=== PATIENT | female | born 1970 | race Caucasian/White ===

== ENCOUNTER 2023-09-26 09:56 | Outpatient (OUT) | payer MEDICARE, MEDICAID, SELFPAY ==
--- NOTE | 2023-09-26 11:02 | CA_ITS ---
Patient Name: EDWIGE NAVAS MR#: [id number] : 1970 Exam Date: 09/26/2023 Ordering Doctor: DR BHARGAV RAMOS M.D. ECHOCARDIOGRAM REPORT PROCEDURE: CA ECHO DOPPLER COMPLETE INDICATIONS: Reza-Danlos syndrome, Palpitations COMPARISON: None. DESCRIPTION: COMPLETE ECHOCARDIOGRAM Real-time transthoracic echocardiography with 2D, M-mode, spectral and color flow Doppler performed. QUALITY: Technical quality was good. LEFT VENTRICLE: Normal chamber size. Normal left ventricular wall thickness. Normal systolic function. LV EF: Calculated left ventricular ejection fraction is normal (55%). DIASTOLIC: Normal diastolic function. ATRIAL SEPTUM: LEFT ATRIUM: Normal chamber size. RIGHT ATRIUM: Normal chamber size. RIGHT VENTRICLE: Normal chamber size. Normal right ventricular systolic function. TRICUSPID VALVE: Normal mobility and thickness. No stenosis with trivial regurgitation. No evidence of pulmonary hypertension. RVSP 22 mmHg MITRAL VALVE: Normal mobility and thickness. No evidence of mitral valve stenosis. There is no mitral annular calcification. Trivial mitral regurgitation. AORTIC VALVE: Normal trileaflet appearance. No visible sclerosis. Normal leaflet mobility. No evidence of aortic valve stenosis. No aortic regurgitation. AORTIC ROOT: Normal diameter and appearance, measuring 3.0 cm. Normal diameter ascending aorta measuring 2.6 cm. The aortic arch measures 2.0 cm. PULMONIC VALVE: Normal thickness and mobility. No stenosis. Trivial regurgitation. PERICARDIUM: No evidence of pericardial effusion. IVC: Collapses with inspirations. Normal size. PLEURA: CONCLUSION: 1. Left ventricle is normal in size with normal systolic function. LVEF is estimated at 55%. 2. Normal right ventricular size and systolic function. 3. Normal diastolic function. 4. No significant valvular dysfunction. 5. Normal size aortic root, ascending aorta and aortic arch. 6. Normal right-sided pressures. Adult Echocardiography Procedure Report Left Ventricle LVEDD (3.7 - 5.6 cm): 4.36 cm LVESD (2.2 - 4.0 cm): 3.07 cm LVIVS thickness (0.6 - 1.2 cm): 0.72 cm LVPW thickness (0.5 - 1.0 cm): 0.66 cm e': 0.12 m/s E - e': 5.80 LVOT Max Gradient: 4.40 mm[Hg] LVOT Area (cm2): 1.05 m/s Peak Velocity (LVOT): 1.05 m/s Mean Velocity (LVOT): 0.69 m/s LVOT Diameter 1.88 cm Left Ventricular Ejection Fraction: 55 % Left Atrium LA Volume Index (2D A2C): 26.78 ml/m2 Left Atrium Systolic Dimension: 2.81 cm Mitral Valve MV E to A Ratio: 0.94 Mitral Valve A-Wave Peak Velocity: 0.77 m/s Mitral Valve E-Wave Peak Velocity: 0.72 m/s Right Ventricle RV Internal Diastolic Dimension: 3.35 cm Aorta AO Root Diam: 2.97 cm Ascending Ao Diam: 2.62 cm Aortic Valve AoV Area (Peak Kevon): 2.24 cm2, 2.24 cm2 AoV Area (VTI): 2.12 cm2, 2.12 cm2 Peak Velocity(Antegrade Flow): 1.30 m/s Peak Gradient(Antegrade Flow): 6.72 mm[Hg] Mean Velocity(Antegrade Flow): 0.91 m/s Mean Gradient(Antegrade Flow): 3.76 mm[Hg] Velocity Time Integral: 30.95 cm Tricuspid Valve Peak Velocity (Regurgitant Flow): 1.67 m/s, 1.83 m/s, 2.17 m/s Pulmonic Valve Mean Gradient: 2.50 mm[Hg], 2.60 mm[Hg] Mean Velocity: 0.73 m/s, 0.75 m/s Peak Velocity: 1.09 m/s Peak Gradient: 5.01 mm[Hg], 4.51 mm[Hg] Right Atrium Right Atrium Systolic Pressure: 40.16 ml, 40.16 ml Dictated by: Bhargav Ramos M.D. on 09/28/2023 at 15:40 Approved by: Bhargav Ramos M.D. on 09/28/2023 at 15:45
== END 2023-09-26 09:57 | disposition home or self-care (01) ==
PROVIDERS: PCP Nurse Practitioner Primary Care; Visit Provider Internal Medicine Interventional Cardiology
DX: Q79.60 Ehlers-Danlos syndrome, unspecified (principal); M35.7 Hypermobility syndrome; R00.2 Palpitations
CPT/HCPCS: 93306

== ENCOUNTER 2023-10-03 11:16 | Outpatient (OUT) | payer MEDICARE, MEDICAID, SELFPAY ==
--- OUTSIDE RECORDS SUMMARY | 2023-10-03 11:19 | XMS_ITS | CCD ---
Author Name Unknown Address [address] [place] [id number] Organization [facility] Care Team Providers Care Order Entry Specialist Name Role Phone PHYSICIAN, DEFAULT Unavailable Unavailable PHYSICIAN, DEFAULT Unavailable Unavailable SELF, REFERRED Unavailable Unavailable SHAMMO, DMITRY Admitting Unavailable SHAMMO, DMITRY Attending Unavailable [facility] Primary Care Unava ilable DR Pj Guo Consulting Unavailable SHAMMO, DMITRY Consulting Unavailable MOUKABHARGAV VELASCO Attending Unavailable JEFFERY SHAW Attending Unavailable BRENDA BRCIE Referring Unavailable [facility] Primary Care Unava ilable Allergies Allergy Classification Reported Allergen(s) Allergy Type Date of Onset Reaction(s) Facility (1 source) Bee/Wasp/Ant venom; Translations: [Bee/Wasp Stings] Propensity to adverse reactions (disorder) 2 [facility] Repository (1 source) [place]; Translations: [berries] Propensity to adverse reactions (disorder) 2 [facility] Repository (3 sources) Penicillins; Translations: [PENICILLINS] Drug allergy (disorder) 2 [facility] Repository (1 source) choclolate; Translations: [choclolate] Propensity to adverse reactions (disorder) 2 [facility] Repository (1 source) Bee pollen; Translations: [BEE POLLEN] Propensity to adverse reactions to drug (disorder) 4 [facility] Repository Problems Active Problems Problem Classification Problem Date Documented Da te Episodic/Chronic Cardiac dysrhythmias (2 sources) Palpitations; Translations: [Palpitations] Onset: 09-05-2023 Episodic Disorders of lipid metabolism (2 sources) Mixed hyperlipidemia; Translations: [Mixed hyperlipidemia] Onset: 09-05-2023 Chronic Esophageal disorders (2 sources) Gastro-esophageal reflux disease without esophagitis; Translations: [Gastro-esophagea l reflux disease without esophagitis] Onset: 09-17-2022 Chronic Screening and history of mental health and substance abuse codes (4 sources) Personal history of nicotine dependence; Translations: [PERSONAL HISTORY OF NICOTINE DEPEND] Onset: 09-17-2022 Episodic Spondylosis; intervertebral disc disorders; other back problems (1 source) Radiculopathy, cervical region; Translations: [Radiculopathy, cervical region] Onset: 08-16-2023 Episodic Unclassified (2 sources) Reza-Danlos syndrome, unspecified; Translations: [Reza-Danlos syndrome, unspecified] Onset: 09-17-2022 Past or Other Problems Problem Classification Problem Date Documented Date Episodic/Chronic Other connective tissue disease (2 sources) Hypermobility syndrome; Translations: [Hypermobility syndrome] Onset: 09-17-2022 Episodic Results Test Name Value Interpretation Reference Range Facil ity Telemedicineon 09-05-2023 Telemedicine [id number] Edwige Navas 1970 F Date Provider Department Center 09/05/2023 JEFFERY PURVIS [facility] Family History Problem Relation Age of Onset Marfan syndrome Son Family Status - Relation Status Age at Son Alive Level of Service:79012 MI OFFICE/OUTPATIENT ESTABLISHED MOD MDM 30 MIN Normal [facility] CT LUNG CANCER SCREENINGon 0 09-18-2022 CT LUNG CANCER SCREENING EXAMINATION: CT LUNG CANCER SCREENING HISTORY: Screening for malignant neoplasm of respiratory tract COMPARISON: No relevant comparison available. TECHNIQUE: Axial, Coronal, and Sagittal images were created without the administration of IV contrast material. Dose reduction techniques were achieved by using automated exposure control and/or adjustment of mA and/or kV according to patient size and/or use of iterative reconstruction technique. FINDINGS: LUNGS: Mild scarring within lung apices bilaterally. Infiltrates or suspicious nodules. PLEURA: No mass, effusion, or pneumothorax. VASCULATURE: No abnormality. ZO: No mass or pathologic adenopathy. MEDIASTINUM: No mass or pathologic adenopathy. CARDIAC: No enlargement, pericardial thickening, or significant calcification. AORTA: No aneurysm or dissection. CHEST WALL: No mass or axillary adenopathy BONES: No bone lesion or fracture. LIMITED ABDOMEN: No suspicious findings. Limited images of the upper abdomen. OTHER: Negative. IMPRESSION: 1. Lung-RADS 2- Benign Appearance or Behavior. Nodules with a very low likelihood of becoming a clinically active cancer due to size or lack of growth. Follow-up CT Chest in 1 year. Electronically authenticated by: PJ GUO Date: 2022-09-18 07:21 Normal [facility] Office Visiton 09-17-2022 Follow-up visit [id number] Edwige Navas 1970 F Date Provider Department Center 09/17/2022 Jina-BHARGAV DIALLO [facility] Family History Problem Relation Age of Onset Marfan syndrome Son Family Status - Relation Status Age at Son Alive Level of Service:84470 MI OFFICE/OUTPATIENT NEW LOW MDM 30-44 MINUTES Reason for Visit and Comments: left ventricular systolic dysfunction [Other] Normal [facility] Encounters Encounter Date Encounter Type Care Provider Facility Start: 09-05-2023 End: 09-05-2023 ambulatory JEFFERY SHAW [facility] Start: 08-16-2023 End: 09-12-2023 ambulatory [facility]EN[facility] Start: 09-17-2022 End: 09-18-2022 ambulatory DMITRY CALIMO Facility: Start: 01-21-2018 End: 01-22-2018 Ambulatory DEFAULT PHYSICIAN Facility:[facility] Payers Date Payer Category Payer Unknown [id number] 1970 Unknown [id number] 1961 Medicaid [id number] 1961 Unknown [id number] Unknown Progress note 09-05-2023 Note Date & Type Note Facility 09-05-2023 Note Patient being seen v ia telemedicine for palpitations and SOB. She is due next month for annual follow up with echo prior, which hasn't been done yet. She is not taking any medications currently. C/o palpitations w/ exertion and GUY. States she feels like her esophagus is closing up . PCP ordered carotid US yesterday she said. Review of Systems Cardiovascular: Positive for chest pain, dyspnea on exertion and palpitations. Respiratory: Positive for cough. Musculoskeletal: Positive for back pain and neck pain. Neurological: Positive for headaches and light-headedness. All other systems reviewed and are negative. [facility] Progress note 09-05-2023 Note Date & Type Note Facility 09-05-2023 Note Cardiovascular Medic ine [facility] SUBJECTIVE No chief complaint on file. Edwige Navas is a 53 y.o. female is being evaluated today for follow-up. 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 Her sons have Marfan's syndrome (or Marfanoid features). -Prior testing in the past included a cardiac CTA and aortic CTA in 07/2011. She had no significant coronary disease by cath in 2014 and no aortic aneurysm. -Echocardiogram 06/2011 was within normal. -She has history of multiple bone fractures and joint injuries. -Chest pain - was investigated by an echocardiogram and a stress test as well as blood testing which were nonrevealing. She was started on omeprazole and this has helped significantly in eliminating the chest pain. -HLD 09/05/2023 Patient being seen via telemedicine for palpitations and SOB. She is due next month for annual follow up with echo prior, which hasn't been done yet. She is not taking any medications currently. C/o palpitations w/ exertion and GUY. States she feels like her esophagus is closing up . PCP ordered carotid US yesterday she said. -She developed palpations about 1 week ago. She could feel it in the center of her chest and in her throat. She could feel some skipped beats. Accompanied headache, chest achiness. -She has had increased SOB with exertion for the past week as well. PCP ordered advanced cholesterol levels ApoB, fatty liver. Denies orthopnea, leg swelling, syncope. Patient Active Problem List Diagnosis Chest pain Cardiovascular stress test abnormal Depressive disorder Disorder of cardiovascular system Reza-Danlos syndrome Marfan's syndrome Hypermobility syndrome Generalized anxiety disorder Electrocardiogram abnormal Left ventricular systolic dysfunction Lipoma Lipoma of skin and subcutaneous tissue (excluding face) Malaise and fatigue Migraine Multiple joint pain Difficulty walking Pain in joint of right ankle Right ankle instability Traumatic rupture of peroneal tendon, right, sequela Past Medical History: Diagnosis Date EDS (Reza-Danlos syndrome) Family History Problem Relation Name Age of Onset Marfan syndrome Son Social History Tobacco Use Smoking status: Former Types: Cigarettes Quit date: 2021 Years since quittin.0 Smokeless tobacco: Never Allergies Allergen Reactions Bee Pollen Other Penicillins Other and Unknown ROS Cardiovascular: Positive for chest pain, dyspnea on exertion and palpitations. Respiratory: Positive for cough. Musculoskeletal: Positive for back pain and neck pain. Neurological: Positive for headaches and light-headedness. All other systems reviewed and are negative. OBJECTIVE Visit Vitals BP 103/59 (BP Location: Right arm, Patient Position: Sitting) Pulse 75 Ht 1.727 m (5' 8 ) Wt 69.9 kg (154 lb) SpO2 99% BMI 23.42 kg/m??? Smoking Status Former BSA 1.83 m??? Medications: Current Outpatient Medications: omeprazole (PriLOSEC) [address] capsule, Take 20 mg by mouth in the morning., Disp: , Rfl: Physical Exam Constitutional: Appearance: She is normal weight. HENT: Head: Normocephalic and atraumatic. Nose: Nose normal. Eyes: Extraocular Movements: Extraocular movements intact. Conjunctiva/sclera: Conjunctivae normal. Pulmonary: Effort: Pulmonary effort is normal. No respiratory distress. Musculoskeletal: Cervical back: Normal range of motion and neck supple. Neurological: Mental Status: She is alert and oriented to person, place, and time. Psychiatric: Mood and Affect: Mood normal. Behavior: Behavior normal. Thought Content: Thought content normal. Judgment: Judgment normal. Labs: No results found for any previous visit. No results found for: EXTCMP , BMPR1A , CBCDIF , BNP , LASAP , RED Blood testing 08/23/2022: Ref Range & Units 3 wk ago White Blood Cells 4.0 - 11.0 X10E9/L 6.0 RBC count 3.80 - 5.20 X10E12/L 5.08 Hemoglobin 11.7 - 15.5 g/dL 14.8 Hematocrit 35 - 47 % 45.2 MCV 80 - 100 fL 89 MCH 27 - 34 pg 29.0 MCHC 32 - 36 g/dL 32.6 RDW 11.5 - 15.0 % 13.1 Platelets 150 - 450 X10E9/L 241 MPV 7 - 12 fL 8.7 Ref Range & Units 3 wk ago Sodium 134 - 146 mmol/L 139 Potassium, Bld 3.5 - 5.0 mmol/L 4.7 Chloride 98 - 109 mmol/L 103 CO2 22 - 32 mmol/L 30 Anion gap 5 - 15 mmol/L 6 BUN 5 - 23 mg/dL 16 Creatinine 0.40 - 1.00 mg/dL 0.93 Comment: METHOD TRACEABLE TO IDMS STANDARD Glucose 65 - 99 mg/dL 88 Calcium 8.5 - 10.5 mg/dL 10.1 Total Protein 6.0 - 8.0 g/dL 7.7 Albumin 3.2 - 5.3 g/dL 4.8 Alkaline Phosphatase 39 - 130 U/L 86 AST 0 - 41 U/L 18 ALT 0 - 31 U/L 13 Total bilirubin 0.3 - 1.2 mg/dL 0.5 eGFR (CKD-EPI)non-race dependent >59 ml/min/1.73sq.m 73 Ref Range & Units 3 wk ago Troponin I 0.00 - 0.04 ng/mL <0.01 Testing/Procedures: Stress test 09/06/2022: No ischemic EKG changes with Lexiscan infusion. No convincing eviden (more content not included)... [facility] Progress note 09-17-2022 Note Date & Type Note Facility 09-17-2022 Note [place] Cardiology - [facility] Subjective Edwieg Navas is a 52 y.o. year old female patient being seen to re-establish care for LV systolic dysfunction. She was last seen in 2019. She had recent stress test and echo at [facility]. She said tests were ordered for intermittent chest pain, radiating to her left shoulder. Says she was started on omeprazole and has not had the pain since then. She quit smoking in October 2021. She denies SOB and palpitations. Patient Active Problem List Diagnosis Chest pain Cardiovascular stress test abnormal Depressive disorder Disorder of cardiovascular system Reza-Danlos syndrome Marfan's syndrome Hypermobility syndrome Generalized anxiety disorder Electrocardiogram abnormal Left ventricular systolic dysfunction Lipoma Lipoma of skin and subcutaneous tissue (excluding face) Malaise and fatigue Migraine Multiple joint pain No family history on file. Social History Tobacco Use Smoking status: Former Types: Cigarettes Quit date: 2021 Years since quittin.0 Smokeless tobacco: Never HPI Ms. Navas is seen as a new patient. I had seen her in the past, last time in 02/2019. 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 She is 52 years old, her sons have Marfan's syndrome (or Marfanoid features). Prior testing in the past included a cardiac CTA and aortic CTA in 07/2011. She had no significant coronary disease by cath in 2014 and no aortic aneurysm. Echocardiogram 06/2011 was within normal. She has history of multiple bone fractures and joint injuries. Recently she was evaluated by her primary care physician due to episodes of chest pain. She reports that the chest pain consist of sharp to squeezing sensation in the center of the chest that radiates to the left side. It can happen at any time during the day. She was investigated by an echocardiogram and a stress test as well as blood testing which were nonrevealing. She was started on omeprazole and this has helped significantly in eliminating the chest pain. Today she reports that she has been doing well. She has no palpitations, no syncope. No chest pain and no shortness of breath on exertion. Review of Systems Respiratory: Positive for cough and wheezing. Musculoskeletal: Positive for back pain and neck pain. Objective Visit Vitals BP 129/69 (BP Location: Left arm, Patient Position: Sitting) Pulse 77 Ht 1.727 m (5' 8 ) Wt 67.1 kg (148 lb) SpO2 99% BMI 22.50 kg/m??? Smoking Status Former BSA 1.79 m??? Physical Exam Constitutional: Appearance: She is well-developed. She is not ill-appearing. HENT: Head: Normocephalic and atraumatic. Nose: Nose normal. Eyes: General: No scleral icterus. Pupils: Pupils are equal, round, and reactive to light. Neck: Thyroid: No thyromegaly. Vascular: No JVD. Cardiovascular: Rate and Rhythm: Normal rate and regular rhythm. Pulses: Radial pulses are 2+ on the right side and 2+ on the left side. Heart sounds: Normal heart sounds. No murmur heard. No friction rub. No gallop. Pulmonary: Effort: Pulmonary effort is normal. No respiratory distress. Breath sounds: Normal breath sounds. No wheezing or rales. Chest: Chest wall: No tenderness. Abdominal: General: Bowel sounds are normal. There is no distension. Palpations: Abdomen is soft. Tenderness: There is no abdominal tenderness. Musculoskeletal: General: No swelling. Cervical back: Neck supple. Comments: Hypermobile and hyperextensible joint Skin: General: Skin is warm and dry. Neurological: General: No focal deficit present. Mental Status: She is alert and oriented to person, place, and time. Psychiatric: Mood and Affect: Mood normal. Behavior: Behavior is cooperative. Judgment: Judgment normal. Allergies Allergies Allergen Reactions Bee Pollen Other Penicillins Other and Unknown Medications Current Outpatient Medications: omeprazole (PriLOSEC) [address] capsule, Take 20 mg by mouth in the morning., Disp: , Rfl: Recent Labs No visits with results within 6 Month(s) from this visit. Latest known visit with results is: No results found for any previous visit. Blood testing 08/23/2022: Ref Range & Units 3 wk ago White Blood Cells 4.0 - 11.0 X10E9/L 6.0 RBC count 3.80 - 5.20 X10E12/L 5.08 Hemoglobin 11.7 - 15.5 g/dL 14.8 Hematocrit 35 - 47 % 45.2 MCV 80 - 100 fL 89 MCH 27 - 34 pg 29.0 MCHC 32 - 36 g/dL 32.6 RDW 11.5 - 15.0 % 13.1 Platelets 150 - 450 X10E9/L 241 MPV 7 - 12 fL 8.7 Ref Range & Units 3 wk ago Sodium 134 - 146 mmol/L 139 Potassium, Bld 3.5 - 5.0 mmol/L 4.7 Chloride 98 - 109 mmol/L 103 CO2 22 - 32 mmol/L 30 Anion gap 5 - 15 mmol/L 6 BUN 5 - 23 mg/dL 16 Creatinine 0.40 - 1.00 mg/dL 0.93 Comment: METHOD TRACEABLE TO IDMS STANDARD Glucose 65 - 99 mg/dL 88 Calcium 8.5 - 10.5 mg/dL 10.1 Total Protein 6.0 - 8.0 g/dL 7.7 Albumin 3.2 - 5.3 g (more content not included)... [facility] Summary Purpose Family History No Family History Records FoundNo Family History Records FoundNo Family History Records FoundNo Family History Records Found Advance Directives No Advanced Directives Records FoundNo Advanced Directives Records FoundNo Advanced Directives Records FoundNo Advanced Directives Records Found Additional Source Comments INFORMATION SOURCE (unrecogn ized section and content) DATE CREATED AUTHOR 01/28/2018 [facility] DATE CREATED AUTHOR AUTHOR'S ORGANIZ ATION 09/20/2022 [facility] DATE CREATED AUTHOR AUTHOR'S ORGANIZ ATION 09/08/2023 [facility] DATE CREATED AUTHOR AUTHOR'S ORGANIZ ATION 09/15/2023 [facility] FOR RECORDS PERTAINING TO PATIENTS WHO ARE OR HAVE BEEN ENROLLED IN A CHEMICAL DEPENDENCY/SUBSTANCEABUSE PROGRAM, SOME INFORMATION MAY BE OMITTED. This clinical summary was aggregated from multiple sources. Caution should be exercised in using it in the provision of clinical care. This summary normalizes information from multiple sources, and as a consequence, information in this document may materially change the coding, format and clinical context of patient data. In addition, data may be omitted in some cases. CLINICAL DECISIONS SHOULD BE BASED ON THE PRIMARY CLINICAL RECORDS. The [employer] provides no warranty or guarantee of the accuracy or completeness of information in this document.
--- NOTE | 2023-10-03 11:21 | US_ITS ---
[place] [id number] Patient Name: EDWIGE NAVAS MRN: [id number] date: 1970 Sex: F Assigned Patient Location: US Current Patient Location: Accession/Order Number: [id number] Exam Date: 10/03/2023 11:22 Report Date: 10/04/2023 17:48 At the request of: LISETTE BIRCH Procedure: US carotid duplex BI US carotid duplex BI, 10/03/2023 11:22 AM EST INDICATION:Headache COMPARISON: No prior carotid ultrasound available for comparison at the time of this dictation TECHNIQUE: Duplex Doppler ultrasound evaluation of the carotid systems including both vertebral arteries was performed. FINDINGS: Focal areas of mild intimal thickening without significant plaque or luminal narrowing. The following velocities were obtained in the right carotid system: ICA peak systolic velocity = 103 cm/sec CCA peak systolic velocity = 82 cm/sec ICA/CCA ratio is 0.8 The following velocities were obtained in the left carotid system: ICA peak systolic velocity = 79 cm/sec CCA peak systolic velocity = 76 cm/sec ICA/CCA ratio is 1.0 Flow within the vertebral arteries is antegrade. US/US carotid duplex BI IMPRESSION: 1. No hemodynamically significant stenosis in either carotid system. 2. Antegrade flow within both vertebral arteries. Electronically authenticated by: ASHLY MCGILL Date: 10/04/2023 17:48
== END 2023-10-03 11:17 | disposition home or self-care (01) ==
PROVIDERS: PCP Nurse Practitioner Primary Care; Visit Provider Nurse Practitioner
DX: G43.909 Migraine, unspecified, not intractable, without status migrainosus (principal); R00.2 Palpitations; R42 Dizziness and giddiness
CPT/HCPCS: 93880

== ENCOUNTER 2023-10-10 12:36 | Outpatient (OUT) | payer MEDICARE, MEDICAID, SELFPAY ==
--- NOTE | 2023-10-10 12:41 | CT_ITS ---
[address] [address] Patient Name: EDWIGE NAVAS MRN: [id number] date: 1970 Sex: F Assigned Patient Location: CT Current Patient Location: CT Accession/Order Number: [id number] Exam Date: 10/10/2023 12:45 Report Date: 10/10/2023 16:03 At the request of: DMITRY AYOUB Procedure: CT lung screening low-dose EXAMINATION: CT lung screening low-dose HISTORY: encounter for screening for malignant neoplasm Z12.2 COMPARISON: 09/17/2022 TECHNIQUE: Axial, Coronal, and Sagittal images were created without the administration of IV contrast material. Dose reduction techniques were achieved by using automated exposure control and/or adjustment of mA and/or kV according to patient size and/or use of iterative reconstruction technique. FINDINGS: LUNGS: Stable biapical pleural parenchymal scarring. A few areas of subpleural opacity, unchanged. No new significant pulmonary nodule or mass. PLEURA: No mass, effusion, or pneumothorax. VASCULATURE: No abnormality. ZO: No mass or pathologic adenopathy. MEDIASTINUM: No mass or pathologic adenopathy. CARDIAC: No enlargement, pericardial thickening, or significant calcification. CORONARY ARTERIES: AORTA: No aneurysm or dissection. CHEST WALL: No mass or axillary adenopathy BONES: No bone lesion or fracture. LIMITED ABDOMEN: No suspicious findings. Limited images of the upper abdomen. OTHER: Negative. CT/CT lung screening low-dose IMPRESSION: LUNG SCREENING: Lung-RADS Category 2- Benign Appearance or Behavior. Nodules with a very low likelihood of becoming a clinically active cancer due to size or lack of growth. 2. Continue annual screening with LDCT in 12 months. Electronically authenticated by: EDU RIVERA Date: 10/10/2023 16:03
--- OUTSIDE RECORDS SUMMARY | 2023-10-10 12:54 | XMS_ITS | CCD ---
Author Name Unknown Address [address] [place] [id number] Organization [facility] Care Team Providers Care Mental Health Professional Name Role Phone PHYSICIAN, DEFAULT Unavailable Unavailable PHYSICIAN, DEFAULT Unavailable Unavailable SELF, REFERRED Unavailable Unavailable SHAMMO, DMITRY Admitting Unavailable SHAMMO, DMITRY Attending Unavailable [facility] Primary Care Unava ilable DR Pj Guo Consulting Unavailable SHAMMO, DMITRY Consulting Unavailable MOUKABHARGAV VELASCO Attending Unavailable JEFFERY SHAW Attending Unavailable BRENDA BRICE Referring Unavailable SERVICES, [facility] Primary Care Unava ilable Allergies Allergy Classification Reported Allergen(s) Allergy Type Date of Onset Reaction(s) Facility (1 source) Bee/Wasp/Ant venom; Translations: [Bee/Wasp Stings] Propensity to adverse reactions (disorder) 2 [facility] Repository (1 source) [place]; Translations: [berries] Propensity to adverse reactions (disorder) 2 [facility] Repository (3 sources) Penicillins; Translations: [PENICILLINS] Drug allergy (disorder) 2 [facility] Repository (1 source) choclolate; Translations: [choclolate] Propensity to adverse reactions (disorder) 2 [facility] Repository (1 source) Bee pollen; Translations: [BEE POLLEN] Propensity to adverse reactions to drug (disorder) 4 [facility] Repository Problems Active Problems Problem Classification Problem [...] Reference Range Facil ity Telemedicineon 09-05-2023 Telemedicine [id number] Edwige Navas 1970 F Date Provider Department Center 09/05/2023 JEFFERY PURVIS [facility] Family History Problem Relation Age of Onset Marfan syndrome Son Family Status - Relation Status Age at Son Alive Level of Service:20734 SD OFFICE/OUTPATIENT ESTABLISHED MOD MDM 30 MIN Normal [facility] CT LUNG CANCER SCREENINGon 0 09-18-2022 CT [...] by: PJ GUO Date: 2022-09-18 07:21 Normal [facility] Office Visiton 09-17-2022 Follow-up visit [id number] Edwige Navas 1970 F Date Provider Department Center 09/17/2022 Jina-BHARGAV DIALLO [facility] Family History Problem Relation Age of Onset Marfan syndrome Son Family Status - Relation Status Age at Son Alive Level of Service:01977 SD OFFICE/OUTPATIENT NEW LOW MDM 30-44 MINUTES Reason for Visit and Comments: left ventricular systolic dysfunction [Other] Normal [facility] Encounters Encounter Date Encounter Type Care Provider Facility Start: 09-05-2023 End: 09-05-2023 ambulatory JEFFERY SHAW [facility] Start: 08-16-2023 End: 09-12-2023 ambulatory [facility] Start: 09-17-2022 End: 09-18-2022 ambulatory DMITRY CALIMO Facility: Start: 01-21-2018 End: 01-22-2018 Ambulatory DEFAULT PHYSICIAN Facility:[facility] Payers Date Payer Category Payer Unknown [id number] [id number] [id number] 1970 Unknown [id number] 1961 Medicaid [id number] 1961 Unknown [id number] Unknown Progress note 09-05-2023 Note Date & [...] All other systems reviewed and are negative. [facility] Progress note 09-05-2023 Note Date & Type Note Facility 09-05-2023 Note Cardiovascular Medic ine [facility] SUBJECTIVE No chief complaint on file. [...] No convincing eviden (more content not included)... [facility] Progress note 09-17-2022 Note Date & Type Note Facility 09-17-2022 Note [place] [facility] - [facility] Subjective Edwige Navas is a 52 y.o. year old female patient being seen to re-establish care for LV systolic dysfunction. She was last seen in 2019. She had recent stress test and echo at [facility]. She said tests were ordered [...] - 5.3 g (more content not included)... [facility] Summary Purpose Family History No Family History Records FoundNo Family History Records FoundNo Family History Records FoundNo Family History Records Found Advance Directives No Advanced Directives Records FoundNo Advanced Directives Records FoundNo Advanced Directives Records FoundNo Advanced Directives Records Found Additional Source Comments INFORMATION SOURCE (unrecogn ized section and content) DATE CREATED AUTHOR 01/28/2018 [facility] DATE CREATED AUTHOR AUTHOR'S ORGANIZ ATION 09/20/2022 [facility] DATE CREATED AUTHOR AUTHOR'S ORGANIZ ATION 09/08/2023 [facility] DATE CREATED AUTHOR AUTHOR'S ORGANIZ ATION 09/15/2023 [facility] FOR RECORDS PERTAINING TO PATIENTS WHO [...] BE BASED ON THE PRIMARY CLINICAL RECORDS. [employer] provides no warranty or guarantee of the accuracy or completeness of information in this document.
== END 2023-10-10 12:37 | disposition home or self-care (01) ==
LOC: CT 12:36
PROVIDERS: PCP Nurse Practitioner Primary Care; Visit Provider Nurse Practitioner Primary Care
DX: F17.210 Nicotine dependence, cigarettes, uncomplicated (principal)
CPT/HCPCS: 71271

== ENCOUNTER 2023-12-03 11:31 | Outpatient (REF) | payer MEDICARE, MEDICAID, SELFPAY ==
--- OUTSIDE RECORDS SUMMARY | 2023-12-03 11:37 | XMS_ITS | CCD ---
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 Name Role Phone PHYSICIAN, DEFAULT Unavailable Unavailable PHYSICIAN, DEFAULT Unavailable Unavailable SELF, REFERRED Unavailable Unavailable SHAMMO, DMITRY Admitting Unavailable SHAMMO, DMITRY Attending Unavailable [facility] Unava ilable Sari, DR Oliva Consulting Unavailable SHAMMO, DMITRY Consulting Unavailable VALERIAJEFFERY GIRON Attending Unavailable MOUKARBELBHARGAV Attending Unavailable BRICE, BRENDA Referring Unavailable SERVICES, [facility] Unava ilable SERVICES, [facility] Unava ilable RODRIGUEZ, ULICES Attending Unavailable RODRIGUEZ, ULICES Referring Unavailable SERVICES, [facility] Unava ilable BRICE, BRENDA Referring Unavailable SERVICES, [facility] Unava ilable SHAMMO, DMITRY Referring Unavailable SERVICES, [facility] Unava ilable SHAMMO, DMITRY Referring Unavailable SERVICES, [facility] Unava ilable BRICE, BRENDA Referring Unavailable SERVICES, [facility] Unava ilable Allergies Allergy Classification Reported Allergen(s) Allergy Type Date of Onset Reaction(s) Facility (1 source) Bee/Wasp/Ant venom; Translations: [Bee/Wasp Stings] Propensity to adverse reactions (disorder) 2 [facility] Repository (1 source) [place]; Translations: [berries] Propensity to adverse reactions (disorder) 2 [facility] Repository (3 sources) Penicillins; Translations: [PENICILLINS] Drug allergy (disorder) 2 [facility] Repository (1 source) choclolate; Translations: [choclolate] Propensity to adverse reactions (disorder) 2 [facility] Repository (1 source) Bee pollen; Translations: [BEE POLLEN] Propensity to adverse reactions to drug (disorder) 4 [facility] Repository Problems Problem Classification Problem Date Documented Date Episodic/Chronic Cardiac dysrhythmias (2 sources) Atrial premature depolarization; Translations: [Atrial premature depolarization] Onset: 10-28-2023 Chronic Cardiac dysrhythmias (2 sources) Palpitations; Translations: [Palpitations] Onset: 09-05-2023 Episodic Disorders of lipid metabolism (2 sources) Mixed hyperlipidemia; Translations: [Mixed hyperlipidemia] Onset: 09-05-2023 Chronic Esophageal disorders (2 sources) Gastro-esophageal reflux disease without esophagitis; Translations: [Gastro-esophageal reflux disease without esophagitis] Onset: 09-05-2023 Chronic Headache; including migraine (2 sources) Headache Onset: 11-04-2023 Episodic Headache; including migraine (1 source) Headache; including migraine; Translations: [Headache, unspecified] Onset: 11-04-2023 Other connective tissue disease (2 sources) Hypermobility syndrome; Translations: [Hypermobility syndrome] Onset: 09-17-2022 Episodic Other screening for suspected conditions (not mental disorders or infectious disease) (1 source) Encounter for screening mammogram for malignant neoplasm of breast; Translations: [Encounter for screening mammogram for malignant neoplasm of breast] Onset: 12-02-2023 Episodic Screening and history of mental health and substance abuse codes (4 sources) Personal history of nicotine dependence; Translations: [PERSONAL HISTORY OF NICOTINE DEPEND] Onset: 09-17-2022 Episodic Spondylosis; intervertebral disc disorders; other back problems (1 source) Radiculopathy, cervical region; Translations: [Radiculopathy, cervical region] Onset: 10-17-2023 Episodic Unclassified (2 sources) Reza-Danlos syndrome, unspecified; Translations: [Reza-Danlos syndrome, unspecified] Onset: 09-17-2022 Results Test Name Value Interpretation Reference Range Facility MAMM SCREENING BILATERAL W C mallet cutter 12-02-2023 MAMM SCREENING BILATERAL W CAD MAMM SCREENING BILATERAL W CAD EXAM: MAMM SCREENING BILATERAL W CAD, 12/02/2023 10:45 AM CLINICAL INDICATIONS: Screening, Visit for screening mammogram COMPARISON: 11/29/2022 and priors TECHNIQUE: Bilateral digital tomosynthesis MLO and CC views of the breasts were obtained, with creation of synthetic 2D views. Computer aided detection was utilized. FINDINGS: The breasts are heterogeneously dense, which may obscure small masses. Bilateral breast implants limit mammographic sensitivity. Negative for malignancy. IMPRESSION: No mammographic evidence of malignancy. BI-RADS: BI-RADS 2 - Benign Recommendation: Routine screening mammogram in 1 year. Finalized by Sam Quinteros MD on 12/02/2023 12:32 PM 2 c MAMM 1 YR Normal [facility] [address] BRAIN WO CONTon CT BRAIN WO CONT CT BRAIN WO CONT CT BRAIN WO CONT CLINICAL HISTORY: Headache chronic with new features COMPARISON: No prior CT brain without contrast obtained. FINDINGS: Ventricles and sulci are age appropriate. No mass, mass effect or midline shift. No intracranial hemorrhage no CT evidence of acute cortical infarct. Skull and paranasal sinuses are unremarkable. IMPRESSION: * No acute intracranial abnormality * All CT scans at this facility use dose modulation, iterative reconstruction, and/or weight based dosing when appropriate to reduce radiation dose to as low as reasonably achievable Finalized by Wayne Santizo MD on 11/04/2023 1:13 PM Normal [facility] Office Visiton 10-28-2023 Follow-up visit [id number] Edwige Navas 1970 F Date Provider Department Center 10/28/2023 BHARGAV RAE EN [facility] Family History Problem Relation Age of Onset Marfan syndrome Son Family Status - Relation Status Age at Son Alive Level of Service:07039 SD OFFICE/OUTPATIENT ESTABLISHED LOW MDM 20 MIN Normal [facility] Telemedicineon 09-05-2023 Telemedicine [id number] Edwige Navas 1970 F Date Provider Department Center 09/05/2023 JEFFERY PURVIS EN [facility] Family History Problem Relation Age of Onset Marfan syndrome Son Family Status - Relation Status Age at Son Alive Level of Service:34494 SD OFFICE/OUTPATIENT ESTABLISHED MOD MDM 30 MIN Normal [facility] CT LUNG CANCER SCREENINGon 0 09-18-2022 [...] Chest in 1 year. Electronically authenticated by: CARROLL MELISSA Date: 2022-09-18 07:21 [facility] Encounters Encounter Date Encounter Type Care Provider Facility Start: 12-02-2023 End: 12-03-2023 ambulatory [facility] Start: 11-11-2023 ambulatory [facility] Start: 11-04-2023 End: 11-05-2023 Emergency department patient visit ULICES [facility] Start: 10-28-2023 End: 10-28-2023 ambulatory [facility] Start: 10-17-2023 End: 11-11-2023 ambulatory [facility] Start: 09-05-2023 End: 09-05-2023 ambulatory JEFFERY [facility] Start: 08-16-2023 End: 09-12-2023 ambulatory [facility] Start: 09-17-2022 End: 09-18-2022 ambulatory [facility] Facility: Start: 01-21-2018 End: 01-22-2018 Ambulatory [facility] PHYSICIAN Facility:[facility] Payers Date Payer Category Payer Medicare [id number] 1970 Unknown [id number] 2.16.84 [id number] 1970 Unknown [id number] 2.16.8 [id number] 1970 Unknown [id number] 2.16.8 [id number] 1970 Unknown [id number] 2.16.8 [id number] 1970 Unknown [id number] 2.16.8 [id number] 1970 Unknown [id number] 2.16.8 [id number] 1968 Unknown [id number] 2.16.8 [id number] 1970 Unknown [id number] 2.16.8 [id number] 1961 Medicaid [id number] 1961 Unknown [id number] Unknown Progress note 10-28-2023 Note Date & Type Note Facility 10-28-2023 Note [place] Cardiology - [facility] Subjective Edwige Navas is a 53 y.o. year old female patient being seen for follow up 30 day event monitor and echo. She says chest pain, GUY, and lightheadedness has all resolved. She did not have lipoprotein drawn. Currently does not take any prescription drugs. Patient Active Problem List Diagnosis Chest pain [...] Traumatic rupture of peroneal tendon, right, sequela Family History Problem Relation Name Age of Onset Marfan syndrome Son Social History Tobacco Use Smoking status: Former Types: Cigarettes Quit date: 2021 Years since quittin.2 Smokeless tobacco: Never HPI Ms. Navas is [...] of multiple bone fractures and joint injuries. In August 2022 she was evaluated by her primary care [...] helped significantly in eliminating the chest pain. She has stopped it since then and has not had recurrence. I last saw her on 09/17/2022. She was seen in telemedicine on 09/05/2023 by MARIO Wallace and she was having symptoms of palpitations and shortness of breath. An event monitor was ordered which showed sinus rhythm with rare PACs. Her ECG was normal. Her echocardiogram did not show significant abnormalities. Today she reports that she has been doing well. She has no syncope. No chest pain and no shortness of breath on exertion. Her symptoms have nearly resolved except for occasional palpitations. Review of Systems Cardiovascular: Positive for palpitations. Respiratory: Positive for cough. Musculoskeletal: Positive for back pain and neck pain. Neurological: Positive for headaches. All other systems reviewed and are negative. Objective Visit Vitals BP 112/74 (BP Location: Left arm, Patient Position: Sitting) Pulse 65 Ht 1.727 m (5' 8 ) Wt 69.9 kg (154 lb) SpO2 98% BMI 23.42 kg/m??? Smoking Status Former BSA 1.83 m??? Physical Exam Constitutional: Appearance: She is [...] the morning., Disp: , Rfl: Recent Labs Blood testing 08/23/2022: Ref Range & Units [...] 15.0 % 13.1 Platelets 150 - 450 X10E (more content not included)... [facility] Progress note 09-05-2023 Note Date & [...] All other systems reviewed and are negative. [facility] Progress note 09-05-2023 Note Date & Type Note Facility 09-05-2023 Note Cardiovascular Medic ine [facility] SUBJECTIVE No chief complaint on file. [...] No convincing eviden (more content not included)... [facility] Summary Purpose Family History No Family History Records FoundNo Family History Records FoundNo Family History Records FoundNo Family History Records Found Advance Directives No Advanced Directives Records FoundNo Advanced Directives Records FoundNo Advanced Directives Records FoundNo Advanced Directives Records Found Additional Source Comments INFORMATION SOURCE (unrecogn ized section and content) DATE CREATED AUTHOR 01/28/2018 [facility] DATE CREATED AUTHOR AUTHOR'S ORGANIZ ATION 09/20/2022 [facility] DATE CREATED AUTHOR AUTHOR'S ORGANIZ ATION 10/28/2023 [facility] DATE CREATED AUTHOR AUTHOR'S ORGANIZ ATION 12/02/2023 [facility] FOR RECORDS PERTAINING TO PATIENTS WHO ARE [...] BE BASED ON THE PRIMARY CLINICAL RECORDS. [employer] [facility]. provides no warranty or guarantee of the accuracy or completeness of information in this document.
== END 2023-12-03 11:32 | disposition home or self-care (01) ==
LOC: LAB 11:31
PROVIDERS: PCP Nurse Practitioner Primary Care; Visit Provider Nurse Practitioner
DX: Z12.4 Encounter for screening for malignant neoplasm of cervix (principal)
CPT/HCPCS: 36415; 87624; 88175